=== PATIENT | female | born 1960 | race Caucasian/White ===

== ENCOUNTER 2021-03-21 12:36 | Outpatient (CLI) | payer MEDICARE, SELFPAY ==
--- NOTE | 2021-03-21 12:55 | MM_ITS ---
WS: [id number] BILATERAL SCREENING DIGITAL MAMMOGRAM WITH CAD HISTORY: SCREENING COMPARISON: 05/26/2016, 05/24/2013 and 12/18/2008 Bilateral CC and MLO views submitted. Computer aided detection analyzed. Breast composition: There are scattered areas of fibroglandular density. No suspicious masses, microc alcifications or architectural distortion. Biopsy clip in the central LEFT breast. The asymmetries wi thin each breast are stable. MM/[place] [id number] IMPRESSION: BI-RADS: 2-Benign FOLLOW UP: 1 Year Follow-up
== END 2021-03-21 12:37 | disposition home or self-care (01) ==
PROVIDERS: PCP Family Medicine; Visit Provider Family Medicine
DX: Z12.31 Encounter for screening mammogram for malignant neoplasm of breast (principal)
CPT/HCPCS: 77067

== ENCOUNTER 2021-09-16 09:06 | Outpatient (CLI) | payer MEDICARE, SELFPAY ==
--- NOTE | 2021-09-16 09:12 | XR_ITS ---
WS: [id number] ABDOMEN SERIES ACUTE Supine and upright views of the abdomen with AP or PA chest CLINICAL INFORMATION: ABDOMINAL PAIN COMPARISON: None. FINDINGS: Heart: Normal cardiac silhouette. Lungs: Lungs are clear. No consolidation or pleural fluid. Moderate chronic emphysematous change. Bowel gas pattern: Right colon constipation. Free air: None. Abnormal calcifications: None. Bones: Osteopenia Cholecystectomy clips. Calcified loose bodies left glenohumeral joint. XR/XR acute abdomen series [id number] IMPRESSION: 1. Distended right colon with constipation. Otherwise normal bowel gas pattern 2. Lungs are well aerated. 3. Lumbar scoliosis.
== END 2021-09-16 09:07 | disposition home or self-care (01) ==
PROVIDERS: PCP Family Medicine; Visit Provider Clinical Nurse Specialist Adult Health
DX: R10.9 Unspecified abdominal pain (principal); K59.00 Constipation, unspecified; M41.86 Other forms of scoliosis, lumbar region
CPT/HCPCS: 74022

== ENCOUNTER 2022-02-18 09:01 | Outpatient (CLI) | payer MEDICARE, SELFPAY ==
--- NOTE | 2022-02-18 09:13 | XR_ITS ---
WS: [id number] XR knee LT 1-2V [id number] REASON FOR EXAM: L KNEE PAIN FINDINGS: Total left knee arthroplasty. Prosthetic components are in proper position and alignment. Minimal lucency around the superior aspect of the femoral component. Multiple radiodense fragments overlying the joint space which presumably are fragments of methylmetha crylate. These were present on 04/03/2019, however they appear more numerous at this time. No focal bone abnormality. XR/XR knee LT -2V [id number] IMPRESSION: Total left knee arthroplasty as above.
== END 2022-02-18 09:02 | disposition home or self-care (01) ==
LOC: RAD 09:02
PROVIDERS: PCP Family Medicine; Visit Provider Family Medicine
DX: M25.562 Pain in left knee (principal); Z96.652 Presence of left artificial knee joint
CPT/HCPCS: 73560; 80053; 80061

== ENCOUNTER 2022-05-07 07:31 | Outpatient (CLI) | payer MEDICARE, SELFPAY ==
[2022-05-07 08:22] VITALS: BMI 43.0
--- NOTE | 2022-05-07 08:23 | NMCV_ITS ---
NM tremaine perf SPECT r/s* [id number] Janett Herman Age: 62 Gender: F : 1960 Exam Date: 05/07/2022 09:15 Ordering Phys: Matthias Chu MD Technologist: KAVITHA Kauffman Exam Location: [facility] Indications: CHEST PAIN STRESS TEST Please see separate stress test report in [facility] for full findings IMAGE PROTOCOL Rest/Stress 1 Exercise Day Radiopharmaceutical Dose (mCi) Administration Site Administered by Rest: Tc-99m 10.8 IV KAVITHA Schulz Sestamibi Stress:Tc-99m 32.7 IV KAVITHA Kauffman Sestamibritta Rest: 07-May-2022 60 Discovery 630 Stress: 07-May-2022 15 Discovery 630 Radiopharmaceutical was injected at 88 % maximum heart rate. Images obtained in supine and prone position. SPECT RESULTS Technical Quality: Excellent Raw Data Analysis: Normal Image Corrections: No attenuation or motion correction applied Summed Stress Score: 1 Summed Rest Score: 3 Summed Difference Score: 0 PERFUSION FINDINGS Small area of decreased tracer uptake in the inferolateral region, with no significant reversibility FUNCTIONAL RESULTS (calculated via Gated SPECT) Stress Image LV EF (%): 71 Stress EDV (mL):79 TID: 1.05 Stress ESV (mL):23 FUNCTIONAL FINDINGS: Segmental wall motion analysis revealing no gross wall motion abnormalities IMPRESSIONS 1. Myocardial perfusion imaging revealing small area of persistent decreased tracer uptake in the inferolateral region suggesting myocardial scarring versus attenuation artifact. 2. Normal LV ejection fraction 71%. 3. LV wall motion analysis revealing no gross wall motion abnormalities. 4. Normal LV volume Low probability for coronary ischemia, based on the above findings Dr Nirav Zeng MD FACC (Electronically Signed) Final Date: 07 May 2022 18:52 S
--- NOTE | 2022-05-07 08:23 | ECG_ITS ---
[facility] Test Date: 2022-05-07 Pat Name: Janett Herman Department: Room: Gender: Female Instructional Systems Design Consultant: Maria Alejandra Stubbs : 1960 Requested By: Matthias Guerrier Order Number: [id number] Ann MD: Nirav Zeng M.D. Interpretive Statements NAME OF STUDY: Exercise/sestamibi/sestamibi stress test INDICATION: Chest Pain, PROCEDURE: The baseline electrocardiogram showed normal sinus rhythm with normal ST-Ts. At the baseline, the patient's blood pressure was 137/93 mm Hg with a heart rate of 96. The patient exercised for 2 minutes and 59conds on a standard Jus protocol. Patient attained a maximum heart rate of 146 beats per minute(93% of the maximum predicted heart rate) with a blood pressure at the peak exercise of 204/77 mm Hg. The EKG at the peak exercise revealed no significant changes. Patient did not have any chest pain or any significant arrhythmis with the exercise Sestamibi was injected 1 minute prior to the peak exercise During the recovery phase, there were no new changes. Blood pressure at the end of the recovery phase was 123/89 mm Hg with a heart rate of 100 per minute. CONCLUSION: 1. No significant EKG changes with the treadmill exercise 2. No exercise-induced chest pain or cardiac arrhythmia 3. Impaired exercise tolerance, attained a maximum of 4.6 METs 4. Sestamibi/Sestamibi perfusion results pending; see separate report. . Electronically Signed On 05-08-2022 18:22:55 CDT by Nirav Zeng M.D. [email or web address]
[2022-05-07 10:37] VITALS: BP 126/90; PULSE 100
== END 2022-05-07 07:32 | disposition home or self-care (01) ==
LOC: CDL 07:37
PROVIDERS: PCP Family Medicine; Visit Provider Family Medicine
DX: R07.9 Chest pain, unspecified (principal)
CPT/HCPCS: 78452; 93017; A9500

== ENCOUNTER → 2022-08-19 08:39 | Outpatient (BNVA) | payer MEDICARE, SELFPAY | PROVIDERS: PCP Family Medicine; Visit Provider Family Medicine | DX: E78.5 Hyperlipidemia, unspecified (principal); M19.90 Unspecified osteoarthritis, unspecified site; F32.A Depression, unspecified | CPT/HCPCS: 80053; 80061 ==

== ENCOUNTER → 2023-02-18 09:02 | Outpatient (BNVA) | payer MEDICARE, SELFPAY | PROVIDERS: PCP Family Medicine; Visit Provider Family Medicine | DX: F32.A Depression, unspecified (principal); E78.5 Hyperlipidemia, unspecified; M19.90 Unspecified osteoarthritis, unspecified site | CPT/HCPCS: 80053; 80061 ==

== ENCOUNTER 2023-07-07 08:19 | Outpatient (CLI) | payer MEDICARE, SELFPAY ==
--- NOTE | 2023-07-07 08:24 | MM_ITS ---
WS: [id number] SCREENING DIGITAL BREAST TOMOSYNTHESIS MAMMOGRAM WITH CAD HISTORY: Z00.00 - Encounter for general adult medical examination ... COMPARISON: 03/21/2021, 05/24/2013 Bilateral CC and MLO with tomosynthesis and synthetic mammography submitted. Computer aided detection analyzed. Breast composition: The breasts are heterogeneously dense, which may obscure small masses. There is a new mass measuring approximately 7 mm in the medial superior RIGHT breast which needs further evalua tion. The remaining asymmetries are stable. IMPRESSION: MM/[place] [id number] BI-RADS: 0-Incomplete: Need additional imaging evaluation FOLLOW UP: Need Additional Imaging RIGHT breast: Spot compression views (CC and MLO). True ML. Ultrasound to follo w if abnormality persists.
== END 2023-07-07 08:20 | disposition home or self-care (01) ==
PROVIDERS: PCP Family Medicine; Visit Provider Family Medicine
DX: Z12.31 Encounter for screening mammogram for malignant neoplasm of breast (principal); Z00.00 Encounter for general adult medical examination without abnormal findings
CPT/HCPCS: 77063; 77067

== ENCOUNTER 2023-08-02 09:38 | Outpatient (CLI) | payer MEDICARE, SELFPAY ==
--- NOTE | 2023-08-02 09:51 | US_ITS ---
WS: [id number] ADDITIONAL VIEWS RIGHT MAMMOGRAM WITH DIGITAL BREAST TOMOSYNTHESIS. RIGHT BREAST ULTRASOUND HISTORY: Abnormal mammogram. COMPARISON: 07/07/2023 and 03/21/2021 RIGHT MAMMOGRAM: Spot compression views and true ML with digital breast tomosynthesis and SM. Lobulated 6 x 7 mm mass in the medial RIGHT breast. This mass appears just above the nipple line. Thi s is in the anterior breast. No calcifications. No distortion. RIGHT BREAST ULTRASOUND 2-D and color Doppler imaging submitted. Ultrasound identified a simple cyst at 2:00 3 cm from the nipple. This is a well-circumscribed simple cyst measuring 5 x 5 x 4 mm. No additional abnormalities are identified. IMPRESSION: US/US breast RT limited* [id number] BI-RADS: 3-Probably Benign FOLLOW UP: 6 Month Follow-up There is a simple cyst in the RIGHT breast at 2:00, 3 cm from the nipple. This does correspond in location to the mammographic abnormality. Otherwise the size and shape are not concordant. As this is not a completely concordant finding b etween the mammogram and ultrasound 6-month diagnostic RIGHT mammogram and poss ible ultrasound evaluation are recommended.
--- NOTE | 2023-08-02 10:00 | MM_ITS ---
WS: [id number] ADDITIONAL VIEWS RIGHT MAMMOGRAM WITH DIGITAL BREAST TOMOSYNTHESIS. RIGHT BREAST ULTRASOUND HISTORY: Abnormal mammogram. COMPARISON: 07/07/2023 and 03/21/2021 RIGHT MAMMOGRAM: Spot compression views and true ML with digital breast tomosynthesis and SM. Lobulated 6 x 7 mm mass in the medial RIGHT breast. This mass appears just above the nipple line. Thi s is in the anterior breast. No calcifications. No distortion. RIGHT BREAST ULTRASOUND 2-D and color Doppler imaging submitted. Ultrasound identified a simple cyst at 2:00 3 cm from the nipple. This is a well-circumscribed simple cyst measuring 5 x 5 x 4 mm. No additional abnormalities are identified. IMPRESSION: MM/[place] [id number] BI-RADS: 3-Probably Benign FOLLOW UP: 6 Month Follow-up There is a simple cyst in the RIGHT breast at 2:00, 3 cm from the nipple. This does correspond in location to the mammographic abnormality. Otherwise the size and shape are not concordant. As this is not a completely concordant finding b etween the mammogram and ultrasound 6-month diagnostic RIGHT mammogram and poss ible ultrasound evaluation are recommended.
== END 2023-08-02 09:39 | disposition home or self-care (01) ==
LOC: RAD 09:39
PROVIDERS: PCP Family Medicine; Visit Provider Family Medicine
DX: N60.01 Solitary cyst of right breast (principal); R92.8 Other abnormal and inconclusive findings on diagnostic imaging of breast
CPT/HCPCS: 76642; 77061; G0279

== ENCOUNTER → 2023-08-23 09:10 | Outpatient (BNVA) | payer MEDICARE, SELFPAY | PROVIDERS: PCP Family Medicine; Visit Provider Family Medicine | DX: E78.5 Hyperlipidemia, unspecified (principal) | CPT/HCPCS: 80053; 80061 ==

== ENCOUNTER → 2023-12-02 08:22 | Outpatient (BNVA) | payer MEDICARE, SELFPAY | PROVIDERS: PCP Family Medicine; Visit Provider Family Medicine | DX: E78.5 Hyperlipidemia, unspecified (principal); G62.9 Polyneuropathy, unspecified | CPT/HCPCS: 80053; 80061; 82607; 84443; 85025 ==

== ENCOUNTER 2024-01-31 08:41 | Outpatient (CLI) | payer MEDICARE, SELFPAY ==
--- NOTE | 2024-01-31 08:47 | MM_ITS ---
WS: [id number] ADDITIONAL VIEWS RIGHT MAMMOGRAM WITH DIGITAL BREAST TOMOSYNTHESIS. RIGHT BREAST ULTRASOUND HISTORY: ABNORMAL MAMMOGRAM COMPARISON: 08/02/2023, 07/07/2023, 03/21/2021 RIGHT MAMMOGRAM: Spot compression views and true ML with digital breast tomosynthesis and SM. The well-circumscribed mass no suspicious masses or calcifications. In the medial RIGHT breast at an anterior depth is identified. This mass measures 5 x 5 mm. RIGHT BREAST ULTRASOUND 2-D and color Doppler imaging submitted. Simple cyst in the RIGHT breast at 2:00, 3 cm from the nipple. Cyst measures 3 x 3 x 2 mm. IMPRESSION: MM/[place] [id number] BI-RADS: 2-Benign FOLLOW UP: 1 Year Follow-up Return to annual screening mammography. Cyst is measuring slightly smaller in t he medial RIGHT breast as compared to the prior study. No solid mass.
== END 2024-01-31 08:42 | disposition home or self-care (01) ==
LOC: RAD 08:41
PROVIDERS: PCP Family Medicine; Visit Provider Family Medicine
DX: R92.8 Other abnormal and inconclusive findings on diagnostic imaging of breast (principal); N60.01 Solitary cyst of right breast
CPT/HCPCS: 76642; 77061; 77065; G0279

== ENCOUNTER → 2024-02-24 09:15 | Outpatient (BNVA) | payer MEDICARE, SELFPAY | PROVIDERS: PCP Family Medicine; Visit Provider Family Medicine | DX: E78.5 Hyperlipidemia, unspecified (principal) | CPT/HCPCS: 80061 ==

== ENCOUNTER 2024-03-17 22:25 | Emergency (ER) | payer MEDICARE, SELFPAY ==
[2024-03-17 22:40] VITALS: BP 145/74; PULSE 79; RESP 20; TEMP 36.6; O2SAT 97; BMI 32.2
--- NOTE | 2024-03-17 23:08 | W.ED.EXTPRO ---
HPI - Extremity Problem General: Chief complaint: Extremity Injury, Upper Stated complaint: Under left arm pain Time Seen by Provider: 03/17/24 22:43 Source: patient Mode of arrival: ambulatory Limitations: no limitations History of Present Illness: Patient is a 63-year-old female who presents the emergency department planing of left upper back and left lateral chest wall pain onset 5 days. Patient states she was initially seen at the walk-in, was diagnosed with GERD and prescribed Prilosec. She notes that this has not helped with her symptoms and as of 2 days ago noticed a rash to her left upper back region. She notes that it has been itchy and painful. She notes she has never had this rash before. She is concerned that it may be shingles, and does note that she has recently changed her diet and been under more stress. No fever, palpitations, headaches, or other neurological complaints reported at this time. MD Complaint: other (Left upper back/left lateral chest) Onset (ago): day(s) Pain Consistency: constant Severity scale (1-10): 10 Quality: burning and sharp Relieving factors: nothing Associated symptoms: Deny fever(s) or rash Review of Systems General: Reports: 10 or more systems reviewed and unremarkable except in HPI and below Const: Denies: fever(s), chills or fatigue Eyes: Denies: change in vision ENMT: Denies: throat pain, ear or mastoid pain or nasal discharge Card: Denies: palpitations, swelling of feet/ankles or lightheadedness Resp: Denies: dyspnea, productive cough or wheezing GI: Denies: abdominal pain, nausea, vomiting, diarrhea or constipation : Denies: flank pain, difficulty voiding, dysuria or urinary frequency Musc: Reports: back pain and other (Left lateral chest wall pain); Denies: neck pain or joint pain Skin/Breast: Denies: rash Neuro: Denies: headache(s), numbness in extremities or weakness in extremities PFSH ED PFSH: Medical History Depression Osteoarthritis Hyperlipidemia Social History Smoking and tobacco/nicotine status: never used tobacco/nicotine Physical Exam Const: COMMON NORMALS: no acute distress, average body habitus, patient oriented x3, no limitations, healthy appearing and alert GENERAL APPEARANCE: cooperative and comfortable ORIENTATION/CONSCIOUSNESS: Yes awake HENMT: COMMON NORMALS: normocephalic and atraumatic HEAD & SCALP: normocephalic and atraumatic THROAT: posterior oropharynx normal OTHER: No rash noted to the face, head, or neck Eye: COMMON NORMALS: EOMs intact bilaterally and conjunctivae normal PERIORBITAL: periorbital findings normal CONJUNCTIVA: Yes conjunctivae normal Neck/C-Spine: COMMON NORMALS: full ROM and supple Chest: COMMONS NORMALS: normal inspection of the chest OTHER: Tenderness to palpation about the left anterolateral chest wall Resp: COMMON NORMALS: normal respiratory effort, No use of accessory muscles and clear to auscultation bilaterally AUSCULTATION: clear to auscultation bilaterally Cardio: COMMON NORMALS: regular rate, regular rhythm, S1 normal heart sound present, S2 normal heart sound present, No gallops present (Cardio), No murmurs present (Cardio) and No rub (Cardio) RATE: regular rate RHYTHM: regular rhythm HEART SOUNDS: S1 normal heart sound present and S2 normal heart sound present GI: COMMON NORMALS: Normal to inspection, nondistended, normoactive bowel sounds present, Soft to palpation and non-tender PALPATION: Yes Soft to palpation Back/Pelvis: OTHER: There is a scattered, vesicular appearing erythematous rash to patient's left upper back that appears to follow a dermatomal pattern. Area is tender to the touch, and there is no bleeding or oozing of the wound. Extremity: COMMON NORMALS: normal to inspection, full ROM and capillary refill normal Neuro: COMMON NORMALS: patient oriented x3, CN's II-XII intact bilaterally, moves all extremities, no focal motor deficits and no sensory deficits noted SENSORIUM/ORIENTATION: Yes alert Psych: COMMON NORMALS: mental status grossly normal Course Vital Signs: Vital signs: Vital Signs Temperature 98 F 03/17/24 22:40 Pulse Rate 79 03/17/24 22:40 Respiratory Rate 20 H 03/17/24 22:40 Blood Pressure 145/74 03/17/24 22:40 Pulse Oximetry 97 03/17/24 22:40 MDM - Extremity (Nontraumatic) Medical Decision Making Patient presents with clinical signs and symptoms of shingles virus. Initially reported pain, rash did appear a couple of days after this. She does note potential stressors that could have exacerbated the virus. Due to this and her normal EKG on arrival, will treat with valacyclovir and prednisone. She also requests a topical pain relief to take at home. She additionally has a follow-up with her primary care on Wednesday and will obtain further evaluation/recheck at that time. Reasons to return were discussed. Her vitals on arrival were normal and aside from the rash, rest of her examination unremarkable. No radiology studies performed this visit Discharge Plan Discharge Patient Disposition: Home Clinical Impression: Shingles Condition: Stable Prescriptions: New lidocaine 5 % cream 1 applic topical TID PRN (Reason: pain) Qty: 15 0RF valacyclovir 1 gram tablet 1,000 mg PO Q8H 7 Days Qty: 21 0RF prednisone 20 mg tablet 60 mg PO ONCE 5 Days Qty: 15 0RF No Action ezetimibe [Zetia] 10 mg tablet 10 mg PO DAILY Qty: 90 3RF meloxicam 15 mg tablet See Rx Instructions .ROUTE .COMPLEX Qty: 90 3RF Dose Instruction: TAKE 1 TABLET EVERY DAY Rx Instructions: TAKE 1 TABLET EVERY DAY Discharge Orders: Discharge ED (Routine); Ordered 03/17/24 Ordered By: Lee Lopez Referrals: Matthias Chu MD [Primary Care Provider] - Discharge Diet: Usual diet Discharge Activity: Increase activity as tolerated Patient Instructions: Shingles (ED) Activity Restrictions/Additional Instructions: Valacyclovir as prescribed. Take steroids. Tylenol and ibuprofen for pain relief. Follow-up with your primary care provider. Return with any new or worsening symptoms. Coding Level of Care Code ED Gastroenterology Physician for Radha Andrew
[2024-03-17] MEDS: dexamethasone 10 mg/mL INJ IM (23:22)
[2024-03-17] MEDS: valACYclovir 1,000 mg Tablet 1000 MG PO (23:23)
[2024-03-18] VITALS: BP 145/74; PULSE 76; RESP 16; O2SAT 96
== END 2024-03-17 23:53 | disposition home or self-care (01) ==
PROVIDERS: Emergency Provider Physician Assistant; PCP Family Medicine
DX: B02.9 Zoster without complications (principal); E78.5 Hyperlipidemia, unspecified
CPT/HCPCS: 96372; 99284; J1100

== ENCOUNTER 2024-05-04 15:40 | Emergency (ER) | payer MEDICARE, SELFPAY ==
[2024-05-04 15:42] VITALS: BP 144/83; PULSE 72; RESP 15; TEMP 36.8; O2SAT 98
--- NOTE | 2024-05-04 15:52 | XRR_ITS ---
PROCEDURE INFORMATION: Exam: XR Left Foot Exam date and time: 05/04/2024 3:57 PM Age: 64 years old Clinical indication: Pain; Foot; Left; Additional info: Pain, no prior imaging TECHNIQUE: Imaging protocol: Radiologic exam of the left foot. Views: 3 or more views. Total images: 19 COMPARISON: CR XR knee LT 1-2V [id number] 02/18/2022 9:42 AM FINDINGS: Bones/joints: Bunion deformity of the first metatarsophalangeal joint. No acute fracture nor subluxation. No osseous erosion nor periosteal reaction. Degenerative changes noted at the base of the 2nd metatarsal. Degeneration of the dorsal midfoot is present. Soft tissues: Normal. XR/XR foot LT min 3V* [id number] IMPRESSION: No acute osseous pathology.
--- NOTE | 2024-05-04 16:06 | ED_ITS ---
HPI - Extremity Problem General: Chief complaint: Extremity Problem,Nontraumatic Stated complaint: left foot pain Time Seen by Provider: 05/04/24 15:52 History of Present Illness: 64-year-old female comes in today with l eft foot pain. Patient is very active lady and lately she has been having increased pain discomfort to her left foot. Patient does have a long history of pain. Patient is not a smoker. Patient has strong pedal pulse. Patient does have a history of back pain also. No significant swelling, redness, or deformity noted to the foot or ankle. Review of Systems General: Reports: 10 or more systems reviewed and unremarkable except in HPI and below PFSH ED PFSH: Medical History Depression Osteoarthritis Hyperlipidemia Social History Smoking and tobacco/nicotine status: never used tobacco/nicotine Physical Exam Const: COMMON NORMALS: alert HENMT: COMMON NORMALS: normocephalic HEAD & SCALP: normocephalic Neck/C-Spine: GENERAL: Yes normal visual inspection Resp: COMMON NORMALS: normal respiratory effort and clear to auscultation bilaterally AUSCULTATION: clear to auscultation bilaterally Cardio: COMMON NORMALS: regular rate RATE: regular rate Back/Pelvis: LUMBAR SPINE/LOWER BACK: Yes lumbar spinal tenderness Lumbar spinal tenderness location: L5 Extremity: COMMON NORMALS: normal to inspection LEFT LOWER EXTREMITY: Yes ankle joint (Tenderness to mid ball of foot) Neuro: SENSORIUM/ORIENTATION: Yes alert Skin: COMMON NORMALS: turgor normal GENERAL SKIN EXAM: turgor normal Course Vital Signs: Vital signs: Vital Signs Temperature 98.2 F 05/04/24 15:42 Pulse Rate 72 05/04/24 15:42 Respiratory Rate 15 05/04/24 15:42 Blood Pressure 144/83 05/04/24 15:42 Pulse Oximetry 98 05/04/24 15:42 Oxygen Delivery Me thod Room Air 05/04/24 15:42 MDM - Extremity (Nontraumatic) Medical Decision Making 64-year-old female comes in today for pain to the right foot. Patient reports significant pain and discomfort to the foot which she states to walk on it, and then also some pain at night. Patient reports some increased discomfort when she is lying on her left side than right side. On exam patient has some L5-S1 vertebral tenderness. Patient has good range of motion of extremities. No significant swelling or redness is noted to be left lower extremity. Strong pedal pulses are palpated. Prompt capillary refill. Foot is neither discolored or red. Differential diagnosis includes but not limited to neuropathy, tarsal tunnel syndrome, osteoarthritis, plantar fasciitis, other foot tendinitis, intervertebral disc disease, facet arthropathy, unlikely claudication or DVT. Wet read of the left foot noted no acute fractures. X-ray of the lumbar spine radiology read degenerative disc disease but no acute fractures. Believe the patient's foot pain may be a combination of both plantar fasciitis or tarsal tunnel syndrome along with neuropathy secondary to her degenerative spine disease. Discussed referral to orthopedic spine or for podiatry, but patient wanted to follow-up with her primary care to talk with him about the recommendations. Patient was not interested in referrals at this time. Patient was reassured that nothing severe was going on and she would use her gabapentin to see if it would help with her discomfort. Lab Data Radiology Impressions Lumbar Spine X-Ray 05/04/24 16:52 IMPRESSION: 1. No acute lumbar spine bony abnormalities. 2. Severe osteoarthritis in the dorsolumbar spine 3. Dorsolumbar levoscoliosis Blount angle 19 degrees 4. Status po a st cholecystectomy XR interpretation done by ED provider, pending radiology final review Discharge Plan Discharge Patient Disposition: Home Clinical Impression: Foot neuralgia Intervertebral disc degeneration Qualifiers: Spinal region: lumbar Qualified Code(s): M51.36 - Other intervertebral disc degeneration, lumbar region Condition: Stable Prescriptions: No Action gabapentin 300 mg capsule 300 mg PO TID Qty: 90 3RF ezetimibe [Zetia] 10 mg tablet 10 mg PO DAILY Qty: 90 3RF meloxicam 15 mg tablet See Rx Instructions .ROUTE .COMPLEX Qty: 90 3RF Dose Instruction: TAKE 1 TABLET EVERY DAY Rx Instructions: TAKE 1 TABLET EVERY DAY lidocaine 5 % cream 1 applic topical TID PRN (Reason: pain) Qty: 15 0RF Discharge Orders: Discharge ED (Routine); Ordered 05/04/24 Ordered By: Jovan Tse Referrals: Matthias Chu MD [Primary Care Provider] - Discharge Diet: Usual diet Discharge Activity: Increase activity as tolerated Patient Instructions: Degenerative Disc Disease (ED) Activity Restrictions/Additional Instructions: Activity as tolerated. Continue with routine medications as needed for pain and discomfort. Follow-up with primary care for further instruction and evaluation and other recommendations for treatment. Return to ER for new concerns. Coding Level of Care Code ED Product Support Engineer for Radha Andrew
--- NOTE | 2024-05-04 16:52 | XRR_ITS ---
PROCEDURE INFORMATION: Exam: XR Lumbosacral Spine Exam date and time: 05/04/2024 5:15 PM Age: 64 years old Clinical indication: Other: Pain; Prior surgery; Surgery date: 6+ months; Surgery type: Gb/appy; Additional info: Back pain TECHNIQUE: Imaging protocol: Radiologic exam of the lumbosacral spine. Views: 2 or 3 views. COMPARISON: CR XR acute abdomen series [id number] 09/16/2021 9:16 AM FINDINGS: Bones/joints: Multilevel intervertebral disc space narrowing is seen with multiple bone spurs consistent with severe osteoarthritis. There is dorsolumbar levoscoliosis. The Blount angle is 19 degrees between T10 and L4. No acute fracture. Soft tissues: Unremarkable. Surgical clips right upper quadrant consistent with cholecystectomy. XR/XR lumbar spine 2-3V* [id number] IMPRESSION: 1. No acute lumbar spine bony abnormalities. 2. Severe osteoarthritis in the dorsolumbar spine 3. Dorsolumbar levoscoliosis Blount angle 19 degrees 4. Status po a st cholecystectomy
[2024-05-04 18:03] VITALS: BP 124/70; PULSE 77; O2SAT 95
[2024-05-04 18:05] VITALS: BP 124/70; PULSE 77; O2SAT 95
== END 2024-05-04 18:05 | disposition home or self-care (01) ==
PROVIDERS: Emergency Provider Nurse Practitioner Family; PCP Family Medicine
DX: M51.36 Other intervertebral disc degeneration, lumbar region (principal); M79.2 Neuralgia and neuritis, unspecified; E78.5 Hyperlipidemia, unspecified
CPT/HCPCS: 72100; 73630; 99284

== ENCOUNTER → 2024-05-17 13:43 | Outpatient (BNVA) | payer MEDICARE, SELFPAY | PROVIDERS: PCP Family Medicine; Visit Provider Podiatrist Foot & Ankle Surgery | DX: G57.62 Lesion of plantar nerve, left lower limb (principal) | CPT/HCPCS: 99203 ==

== ENCOUNTER 2024-05-24 09:40 | Outpatient (CLI) | payer MEDICARE, SELFPAY ==
--- NOTE | 2024-05-24 10:15 | US_ITS ---
WS: [id number] Ultrasound soft tissue INDICATION: Franks's neuroma TECHNIQUE: Ultrasound soft tissue area of concern second and third interspace LEFT foot FINDINGS: Ultrasound second and third interspace LEFT foot. RIGHT foot for comparison. No visualized cystic or solid lesions or soft tissue nodule in the area of concern second and third interspace. No visualized Franks's neuroma in this area. Comparison RIGHT foot has a normal appearance. US/US soft tissue/extremity [id number] IMPRESSION: No definite nodules to correspond to a Franks's neuroma in the area of concern.
== END 2024-05-24 09:41 | disposition home or self-care (01) ==
LOC: RAD 09:41
PROVIDERS: PCP Family Medicine; Visit Provider Podiatrist Foot & Ankle Surgery
DX: M79.672 Pain in left foot (principal); G57.62 Lesion of plantar nerve, left lower limb
CPT/HCPCS: 76882

== ENCOUNTER → 2024-06-19 07:39 | Outpatient (BNVA) | payer MEDICARE, SELFPAY | PROVIDERS: PCP Family Medicine; Visit Provider Podiatrist Foot & Ankle Surgery | DX: M77.41 Metatarsalgia, right foot; M77.42 Metatarsalgia, left foot | CPT/HCPCS: 99213 ==

== ENCOUNTER → 2024-07-31 07:13 | Outpatient (BNVA) | payer MEDICARE, SELFPAY | PROVIDERS: PCP Family Medicine; Visit Provider Podiatrist Foot & Ankle Surgery | DX: M21.611 Bunion of right foot; M21.612 Bunion of left foot; M25.872 Other specified joint disorders, left ankle and foot; M21.41 Flat foot [pes planus] (acquired), right foot; M21.42 Flat foot [pes planus] (acquired), left foot | CPT/HCPCS: 99213 ==

== ENCOUNTER → 2024-08-31 08:05 | Outpatient (BNVA) | payer MEDICARE, SELFPAY | PROVIDERS: PCP Family Medicine; Visit Provider Family Medicine | DX: E78.5 Hyperlipidemia, unspecified (principal); F32.A Depression, unspecified; G62.9 Polyneuropathy, unspecified | CPT/HCPCS: 80053; 80061; 85025 ==

== ENCOUNTER → 2024-09-11 07:37 | Outpatient (BNVA) | payer MEDICARE, SELFPAY | PROVIDERS: PCP Family Medicine; Visit Provider Podiatrist Foot & Ankle Surgery | DX: M21.611 Bunion of right foot; M21.612 Bunion of left foot; M21.41 Flat foot [pes planus] (acquired), right foot; M21.42 Flat foot [pes planus] (acquired), left foot; M77.41 Metatarsalgia, right foot; M77.42 Metatarsalgia, left foot; M25.871 Other specified joint disorders, right ankle and foot; M25.872 Other specified joint disorders, left ankle and foot | CPT/HCPCS: 99213 ==

== ENCOUNTER 2024-10-02 10:39 | Outpatient (CLI) | payer MEDICARE, SELFPAY | END 2024-10-02 10:40 | disposition home or self-care (01) | LOC: SPT 10:40 | PROVIDERS: PCP Family Medicine; Visit Provider Podiatrist Foot & Ankle Surgery | DX: Z46.89 Encounter for fitting and adjustment of other specified devices (principal); M77.42 Metatarsalgia, left foot; M77.41 Metatarsalgia, right foot; M21.42 Flat foot [pes planus] (acquired), left foot; M21.41 Flat foot [pes planus] (acquired), right foot; M21.612 Bunion of left foot; M21.611 Bunion of right foot | CPT/HCPCS: L3030 ==

== ENCOUNTER → 2024-12-11 07:30 | Outpatient (BNVA) | payer MEDICARE, SELFPAY | PROVIDERS: PCP Family Medicine; Visit Provider Podiatrist Foot & Ankle Surgery | DX: M77.41 Metatarsalgia, right foot (principal); M77.42 Metatarsalgia, left foot; M21.611 Bunion of right foot; M21.612 Bunion of left foot; M79.671 Pain in right foot; M79.672 Pain in left foot; M25.871 Other specified joint disorders, right ankle and foot; M21.41 Flat foot [pes planus] (acquired), right foot; M21.42 Flat foot [pes planus] (acquired), left foot | CPT/HCPCS: 99213 ==

== ENCOUNTER 2024-12-21 07:32 | Outpatient (RCR) | payer MEDICARE, SELFPAY | END 2025-01-08 23:59 | disposition home or self-care (01) | LOC: SPT 07:32 | PROVIDERS: Visit Provider Podiatrist Foot & Ankle Surgery | DX: M77.42 Metatarsalgia, left foot (principal); M21.612 Bunion of left foot | CPT/HCPCS: 97033; 97035; 97140; 97161 ==

== ENCOUNTER 2025-01-09 05:00 | Outpatient (RCR) | payer MEDICARE, SELFPAY | END 2025-02-07 23:59 | disposition home or self-care (01) | LOC: SPT 05:00 | PROVIDERS: Visit Provider Podiatrist Foot & Ankle Surgery | DX: M77.42 Metatarsalgia, left foot (principal); M21.612 Bunion of left foot | CPT/HCPCS: 97033; 97035; 97110; 97140 ==

== ENCOUNTER → 2025-01-29 07:25 | Outpatient (BNVA) | payer MEDICARE, SELFPAY | PROVIDERS: PCP Family Medicine; Visit Provider Podiatrist Foot & Ankle Surgery | DX: G57.62 Lesion of plantar nerve, left lower limb (principal); M79.671 Pain in right foot; M79.672 Pain in left foot; M21.611 Bunion of right foot; M21.612 Bunion of left foot; M25.872 Other specified joint disorders, left ankle and foot; M21.41 Flat foot [pes planus] (acquired), right foot; M21.42 Flat foot [pes planus] (acquired), left foot | CPT/HCPCS: 64455; J1100; J3301; J3490 ==

== ENCOUNTER → 2025-03-07 08:50 | Outpatient (BNVA) | payer MEDICARE, SELFPAY | PROVIDERS: PCP Family Medicine; Visit Provider Family Medicine | DX: E78.5 Hyperlipidemia, unspecified (principal) | CPT/HCPCS: 80061 ==

== ENCOUNTER → 2025-03-14 07:57 | Outpatient (BNVA) | payer MEDICARE, SELFPAY | PROVIDERS: PCP Family Medicine; Visit Provider Podiatrist Foot & Ankle Surgery | DX: M77.41 Metatarsalgia, right foot (principal); M77.42 Metatarsalgia, left foot; M21.611 Bunion of right foot; M21.612 Bunion of left foot; M25.871 Other specified joint disorders, right ankle and foot; M21.41 Flat foot [pes planus] (acquired), right foot; M21.42 Flat foot [pes planus] (acquired), left foot | CPT/HCPCS: 64455; J1100; J3301; J3490 ==

== ENCOUNTER → 2025-04-11 07:39 | Outpatient (BNVA) | payer MEDICARE, SELFPAY | PROVIDERS: PCP Family Medicine; Visit Provider Podiatrist Foot & Ankle Surgery | DX: M77.41 Metatarsalgia, right foot (principal); M77.42 Metatarsalgia, left foot; M21.611 Bunion of right foot; M21.612 Bunion of left foot; M21.41 Flat foot [pes planus] (acquired), right foot; M21.42 Flat foot [pes planus] (acquired), left foot; M20.22 Hallux rigidus, left foot; M25.872 Other specified joint disorders, left ankle and foot | CPT/HCPCS: 99213 ==

== ENCOUNTER → 2025-04-18 08:02 | Outpatient (BNVA) | payer MEDICARE, SELFPAY | PROVIDERS: PCP Family Medicine; Visit Provider Family Medicine | DX: I10 Essential (primary) hypertension (principal) | CPT/HCPCS: 80061 ==

== ENCOUNTER → 2025-06-13 07:37 | Outpatient (BNVA) | payer MEDICARE, SELFPAY | PROVIDERS: PCP Family Medicine; Visit Provider Podiatrist Foot & Ankle Surgery | DX: M21.611 Bunion of right foot (principal); M21.612 Bunion of left foot; M25.879 Other specified joint disorders, unspecified ankle and foot; M21.41 Flat foot [pes planus] (acquired), right foot; M21.42 Flat foot [pes planus] (acquired), left foot; G57.62 Lesion of plantar nerve, left lower limb; M20.22 Hallux rigidus, left foot | CPT/HCPCS: 99213 ==